=== PATIENT | male | born 1955 | race Caucasian/White ===

== ENCOUNTER 2021-08-17 10:25 | Emergency (ER) | payer OTHER, MEDICARE, SELFPAY ==
--- NOTE | 2021-08-17 10:30 | XR_ITS ---
WS: [id number] XR foot LT min 3V* [id number] REASON FOR EXAM: possible broken foot FINDINGS: No fracture identified. 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 Similar arthrop athic change in the MP joint and tarsal metatarsal joint of the toe. Joint spaces of the midfoot and hindfoot are intact and well preserved. XR/XR foot LT min 3V* [id number] IMPRESSION: No acute abnormality.
[2021-08-17 10:33] VITALS: PULSE 54; RESP 18; TEMP 36.8; O2SAT 99; BMI 24.5
--- NOTE | 2021-08-17 10:44 | ED_ITS ---
HPI - Extremity Problem General: Chief complaint: Extremity Injury, Lower Stated complaint: poss left broken foot Time Seen by Provider: 08/17/21 10:39 Source: patient Mode of arrival: other (With crutches) Limitations: no limitations History of Present Illness: 65-year-old male presents to the ER today for left foot pain that started yesterday. Patient reports this pain started after he was loading wood into his truck and stepped in a hole. Patient denies feeling a pop. He reports there has been swelling and tenderness since. Pain is worse with weightbearing and range of motion. Patient did take oxycodone he had at home and that did seem to help the pain some. Patient has been using crutches since he did this yesterday. Denies any prior injury to that foot. Review of Systems General: Reports: 10 or more systems reviewed and unremarkable except in HPI and below Musc: Reports: other (left foot pain) Physical Exam Const: COMMON NORMALS: no acute distress, average body habitus, patient oriented x3, no limitations and healthy appearing Resp: COMMON NORMALS: normal respiratory effort EFFORT & INSPECTION: Yes able to speak in complete sentences Cardio: COMMON NORMALS: regular rate and regular rhythm RATE: regular rate RHYTHM: regular rhythm Extremity: OTHER: pt has tenderness over the dorsal aspect of the foot at the proximal end of the 4th and 5th metatarsals. There is mild swelling noted, no erythema or warmth noted. Neuro: COMMON NORMALS: patient oriented x3 Psych: COMMON NORMALS: mental status grossly normal, Normal thought process present and cooperative THOUGHT PROCESS: Normal thought process present Skin: COMMON NORMALS: no rashes or lesions noted GENERAL SKIN EXAM: no rash es or lesions noted Course ED course: 65-year-old male presents to the ER today for left foot pain after injury yesterday. On exam there is mild swelling and tenderness noted. We will get x-ray of the left foot and treat pending results. Vital Signs: Vital signs: Vital Signs Temperature 98.2 F 08/17/21 10:33 Pulse Rate 54 L 08/17/21 10:33 Respiratory Rate 18 08/17/21 10:33 Pulse Oximetry 99 08/17/21 10:33 MDM - Extremity (Nontraumatic) Medical Decision Making 65-year-old male presents to the ER today for left foot pain after injuring it yesterday while loading wood into his truck. Patient has some swelling and tenderness noted in the dorsal aspect of the left foot. X-ray of the foot is negative in the ER today. Discussed findings with patient and recommended rest, ice, elevation. Take anti-inflammatory or Tylenol for pain. Use crutches for the next several days and progressed to weightbearing as tolerated. Follow-up with PCP in 10 to 14 days if no improvement. Patient was placed in Arie bandage in the ER. Return to the ER with any new or worsening symptoms. Patient verbalized understanding and is in agreement with the treatment plan. Lab Data Radiology Impressions Foot X-Ray 08/17/21 10:30 IMPRESSION: No acute abnormality. Critical Care Time Critical Care Time: Critical Care Time: No Discharge Plan Discharge Patient Disposition: Home Clinical Impression: Sprain of foot, left Qualifiers: Encounter type: initial encounter Qualified Code(s): S93.602A - Unspecified sprain of left foot, initial encounter Condition: Stable Discharge Orders: Discharge ED (Routine); Ordered 08/17/21 Ordered By: Joanna Smith Discharge Diet: Usual diet Discharge Activity: Increase activity as tolerated Patient Instructions: Opioid Safety Activity Restrictions/Additional Instructions: Take ibuprofen and Tylenol for pain. Elevate foot and apply ice to reduce swelling. Follow-up with PCP in 10 to 14 days if no improvement. Return to the ER with new or worsening symptoms. Coding Level of Care Code ED Food Service Employee for Yvrose Vora Exam Detailed
== END 2021-08-17 11:40 | disposition home or self-care (01) ==
PROVIDERS: Emergency Provider Physician Assistant
DX: S93.602A Unspecified sprain of left foot, initial encounter (principal); X50.1XXA Overexertion from prolonged static or awkward postures, initial encounter
CPT/HCPCS: 73630; 99282

== ENCOUNTER 2022-01-07 11:28 | Outpatient (CLI) | payer OTHER, SELFPAY ==
--- NOTE | 2022-01-07 11:56 | CT_ITS ---
WS: [id number] CT ABDOMEN AND PELVIS WITH CONTRAST HISTORY: CHRONIC UPPER ABDOMINAL PAIN TECHNIQUE: Imaging performed of the abdomen and pelvis with IV contrast. Single phase imaging of the abdomen. Coronal and sagittal reformats are submitted. All CT scans at [facility] use at [address] one of these dose optimization techniques: automated exposure control; mA and/or kV adjustment per patient size (includes targeted exams where dose is matched to clinical indication); or iterative re construction. IV CONTRAST: Omnipaque 350; 95 mL IV. Oral contrast: Yes. DLP: 1187.09 mGy.cm COMPARISON: 01/15/2018 Lower thorax: Lung bases are clear. Heart is normal size. Small hiatal hernia. Liver/biliary system: Mild hepatomegaly. Mild pneumobilia. Mild heterogeneity throughout the liver bu t no mass. Portal vein is patent. Gallbladder: Status post cholecystectomy. Pancreas: Status post Whipple procedure. Surgical clips are noted at the pancreatic head and neck jevon ction. The remaining pancreas is severely atrophied. Spleen: Normal size spleen. No mass or infarct. Adrenal glands: Normal. Right kidney: Normal size kidney. Nonobstructing calcification lower pole measures 5.2 mm. Cortical c yst lower pole 5.6 mm. Left kidney: Normal size kidney with no obstruction. Stable cortical cyst upper pole measures 8.7 mm. Aorta: Mild atherosclerosis with no aneurysm. Mesenteric arteries are well-opacified. Lymphadenopathy: None. Free fluid: None. GI tract: Diffuse moderate thickening of the stomach mucosa. In part this may be due to underdistenti on but the extent of the thickening is more prominent than on the prior examination. There is also co ntinued wall thickening and edema involving the proximal duodenum. This is also increased since 2018. The remaining small bowel is more normal caliber. There is extensive constipation and diffuse fecal retention. Normal appendix. Abdominal wall: Unremarkable abdominal wall. No hernia. Pelvis: No free fluid or adenopathy. Urinary bladder is negative. Very minimal heterogeneity within t he prostate gland. Prostate slightly encroaches into the base of the bladder. Bones: Unremarkable. CT/CT abdomen pelvis w con* [id number] IMPRESSION: 1. Status post Whipple procedure. Pancreatic findings are similar to the prior study from 2018. Stable pneumobilia. 2. Prior cholecystectomy. 3. There is diffuse wall thickening of the stomach and proximal small bowel. M ore than expected for underdistention. Suggest upper endoscopy for further eval uation. 4. Nonobstructing RIGHT renal calculi. 5. Normal appendix. 6. Diffuse moderate constipation. 7. No ascites or adenopathy.
[2022-01-07 13:43] LABS: Blood Urea Nitrogen 7 mg/dL (8-23); Glomerular Filtration Rate 84.4 mL/min (90-130)
[2022-01-07] MEDS: iohexol 350 mg/mL 100 mL Btl IV (13:54)
== END 2022-01-07 11:29 | disposition home or self-care (01) ==
PROVIDERS: Visit Provider Emergency Medicine Emergency Medical Services
DX: K44.9 Diaphragmatic hernia without obstruction or gangrene (principal); Z90.49 Acquired absence of other specified parts of digestive tract; N20.0 Calculus of kidney; K59.00 Constipation, unspecified
CPT/HCPCS: 74177; 82565; 84520

== ENCOUNTER 2022-02-02 15:04 | Emergency (ER) | payer OTHER, SELFPAY ==
[2022-02-02 15:29] VITALS: BP 120/67; PULSE 56; RESP 16; TEMP 36.7; O2SAT 97; BMI 25.7
--- NOTE | 2022-02-02 15:48 | ECG_ITS ---
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 Measurements Intervals [place] Rate: 49 P: 59 [place]: 180 QRS: -26 QRSD: 127 T: 29 QT: 455 QTc: 411 Interpretive Statements Sinus bradycardia ABNORMAL RHYTHM ECG No previous ECG available for comparison Electronically Signed On 02-02-2022 18:14:30 CDT by Rich Tubbs M.D. [id number]
[2022-02-02 16:00] VITALS: BP 133/78; PULSE 95; RESP 23; O2SAT 93
--- NOTE | 2022-02-02 16:13 | W.ED.ABDPA2 ---
HPI - Abdominal Pain General: Chief Complaint: Abdominal Pain Stated Complaint: Abd pains Time Seen by Provider: 02/02/22 15:45 Source: patient Mode of arrival: ambulatory History of Present Illness: 66-year-old male presents emergency room complaining of epigastric abdominal pain radiating across her right and left upper quadrants. He had similar pain in the past but has not been as intense as this. He has had quite a bit of diarrhea the last 24 hours no hematochezia melena hematemesis or coffee-ground emesis no black tarry stools no melena. No nausea or vomiting. No dysuria urgency or frequency. He has had some reflux today. He reports intermittent subjective fevers. No recent antibiotics. In 2012 patient had a perforated diverticuli they were doing a bowel resection and found a nodule in his pancreas that was thought to be precancerous as a result he had a modified Whipple procedure of some sort per his and his 's report. MD elicited complaint: abdominal pain Onset (ago): hour(s) Pain Consistency: constant Location: Epigastric Severity: moderate Quality: cramping Radiation: LUQ and RUQ Exacerbating factors: nothing Relieving factors: nothing Associated Symptoms: Reports change in bowel habits, change in stool character, chills, GI cramping, diarrhea, dyspepsia, fever(s), nausea and poor appetite; Denies anorexia, belching, bloating, coffee ground emesis, constipation, dysuria, excessive flatus, heartburn, hematochezia, hematuria, hematemesis, fecal incontinence, loose stools, melena, syncope and vomiting Review of Systems Const: Reports: fever(s), chills, fatigue and malaise ENMT: Denies: throat pain, ear or mastoid pain, nasal discharge or nasal congestion Card: Denies: chest pain, palpitations, irregular heart rhythm or syncope Resp: Denies: dyspnea, productive cough or non-productive cough GI: Reports: abdominal pain, nausea, diarrhea, GI cramping, change in bowel habits and change in stool character; Denies: vomiting, hematemesis, coffee ground emesis, heartburn, constipation, bloating, belching, excessive flatus, fecal incontinence, hematochezia or melena : Denies: flank pain, difficulty urinating, dysuria, urinary frequency or hematuria Musc: Denies: back pain Skin/Breast: Denies: rash or pruritus Physical Exam Const: GENERAL APPEARANCE: cooperative and comfortable ORIENTATION/CONSCIOUSNESS: Yes awake, Yes oriented to person, Yes oriented to place and Yes oriented to time HENMT: COMMON NORMALS: normocephalic, atraumatic and hearing grossly normal bilaterally HEAD & SCALP: normocephalic and atraumatic Resp: COMMON NORMALS: normal respiratory effort, No retractions, No use of accessory muscles and clear to auscultation bilaterally AUSCULTATION: clear to auscultation bilaterally Cardio: COMMON NORMALS: regular rate, regular rhythm and No murmurs present (Cardio) RATE: regular rate RHYTHM: regular rhythm GI: COMMON NORMALS: Soft to palpation and No hepatosplenomegaly present AUSCULTATION: Yes normoactive bowel sounds PALPATION: Yes Soft to palpation, No Tenderness to palpation present (GI), No Guarding due to palpation present (GI) and Yes No hepatosplenomegaly present Extremity: COMMON NORMALS: normal to inspection, capillary refill normal, no clubbing, cyanosis or edema, no calf tenderness and no pedal edema Neuro: SENSORIUM/ORIENTATION: Yes oriented to person, Yes oriented to place and Yes oriented to time Skin: COMMON NORMALS: no rashes or lesions noted GENERAL SKIN EXAM: no rashes or lesions noted Course Vital Signs: Vital signs: Vital Signs Temperature 98.1 F 02/02/22 15:29 Pulse Rate 56 L 02/02/22 15:29 Respiratory Rate 16 02/02/22 15:29 Blood Pressure 120/67 02/02/22 15:29 Pulse Oximetry 97 02/02/22 15:29 Oxygen Delivery Me thod 02/02/22 15:29 MDM - Abdominal Pain Medical Decision Making White count slightly elevated CT shows evidence of colitis. Started on Cipro and Flagyl clear liquid diet promethazine as needed follow-up with primary care if not improving. Medical Records I reviewed the patient's medical records. Lab Data I reviewed the patient's lab results. : 02/02/22 16:29 02/02/22 16:29 Labs/Radiology: Radiology Impressions Abdomen/Pelvis CT 02/02/22 16:16 IMPRESSION: 1. Prominent fluid throughout the small bowel and ascending colon with mucosal enhancement suggestive of an enterocolitis. 2. Diverticulosis without diverticulitis. 3. Small left inguinal hernia containing omentum without bowel. 4. Right kidney lower pole nonobstructing calyceal stone. 5. Bibasilar atelectasis. 6. Pneumobilia. 7. Hepatic steatosis. 8. Cholecystectomy and apparent post surgical Whipple changes. 9. Atrophy appearance of the pancreatic body and tail. 10. Bilateral renal cysts, negative for follow-up advised. Laboratory Results WBC 11.1 10^3/uL (4.0-10.0) H 02/02/22 16: RBC 4.51 10^6/uL (4.1-5.3) 02/02/22 16: Hgb 14.1 g/dL (11.7-16.6) 02/02/22 16: Hct 42.3 % (42.0-52.0) 02/02/22 16: MCV 93.8 fl (80-94) 02/02/22 16: MCH 31.3 pg (28.0-34.0) 02/02/22 16: MCHC 33.3 g/dL (30.0-36.0) 02/02/22 16: RDW 12.9 % (12.1-15.1) 02/02/22 16: Plt Count 222 10^3/cmm (130-400) 02/02/22 16: MPV 9.8 fL (7.4-10.4) 02/02/22 16: Neut % (Auto) 78.2 % 02/02/22 16: Lymph % (Auto) 11.9 % 02/02/22 16: [place] % (Auto) 6.2 % 02/02/22 16: Eos % (Auto) 2.8 % 02/02/22 16: Baso % (Auto) 0.5 % 02/02/22 16: Neut # (Auto) 8.64 10^3/uL (1.8-7.7) H 02/02/22 16: Lymph # (Auto) 1.3 10^3/uL (0.8-4.8) 02/02/22 16: [place] # (Auto) 0.7 10^3/uL (0.2-0.9) 02/02/22 16: Eos # (Auto) 0.3 10^3/uL (0.0-0.8) 02/02/22 16:29 Baso # (Auto) 0.1 10^3/uL (0.0-0.1) 02/02/22 16:29 Nucleated RBC % (auto) 0 % 02/02/22 16: Nucleated RBCs # 0.0 /100WBC 02/02/22 16:29 Sodium 136 mmol/L (136-145) 02/02/22 16:29 Potassium 4.1 mmol/L (3.5-5.1) 02/02/22 16: Chloride 100 mmol/L (98-107) 02/02/22 16: Carbon Dioxide 26 mmol/L (22-29) 02/02/22 16: Anion Gap 14.1 (5-19) 02/02/22 16:29 BUN 9 mg/dL (8-23) 02/02/22 16: Creatinine 0.7 mg/dL (0.7-1.2) 02/02/22 16:29 GFR Calculation 112.8 mL/min (90-130) 02/02/22 16:29 Glucose 103 mg/dL (65-115) 02/02/22 16:29 Calculated Osmolality 281 mOsm/kg (285-295) L 02/02/22 16:29 Calcium 9.1 mg/dL (8.5-10.5) 02/02/22 16:29 Total Bilirubin 0.8 mg/dL (0.15-1.2) 02/02/22 16:29 AST 49 U/L (0-40) H 02/02/22 16:29 ALT 55 U/L (0-41) H 02/02/22 16:29 Alkaline Phosphatase 125 U/L (40-130) 02/02/22 16:29 Total Protein 6.6 g/dL (6.6-8.7) 02/02/22 16:29 Albumin 3.8 g/dL (3.5-5.2) 02/02/22 16: Globulin 2.8 g/dL (1.3-4.6) 02/02/22 16:29 Lipase 5 U/L (13-60) L 02/02/22 16:29 Urine Color Yellow (Yellow) 02/02/22 16:07 Urine Appearance Clear (CLEAR) 02/02/22 16:07 Urine pH 5 (5-7) 02/02/22 16:07 Ur Specific [place] 1.020 (1.005-1.030) 02/02/22 16:07 Urine Protein Neg (Negative) 02/02/22 16:07 Urine Glucose (UA) Norm (Normal) 02/02/22 16:07 Urine Ketones 1+ (Negative) H 02/02/22 16:07 Urine Blood Neg (Negative) 02/02/22 16:07 Urine Nitrate Negative (Negative) 02/02/22 16:07 Urine Bilirubin Neg (Negative) 02/02/22 16:07 Urine Urobilinogen Neg mg/dL (Negative) 02/02/22 16:07 Ur Leukocyte Esterase Negative (Negative) 02/02/22 16:07 Discharge Plan Discharge Patient Disposition: Home Clinical Impression: Colitis Condition: Stable Prescriptions: New Cipro 500 mg tablet 500 mg PO BID Qty: 20 0RF metronidazole 500 mg tablet 500 mg PO BID 10 Days Qty: 20 0RF promethazine 25 mg tablet 25 mg PO Q6H PRN (Reason: nausea and vomiting) Qty: 20 0RF Discharge Orders: Discharge ED (Routine); Ordered 02/02/22 Ordered By: Christian Singleton Discharge Diet: Full LIquid Patient Instructions: Opioid Safety, Pain Management Activity Restrictions/Additional Instructions: CT showed inflammation of your colon we will start you on antibiotics. We will could have 24 to 48 hours and advance as tolerated. If symptoms worsen or change recheck with your primary care doctor return to the emergency room. Coding Level of Care Code ED Solar Sales Ambassador for Yvrose Fwcortney Exam Detailed
--- NOTE | 2022-02-02 16:16 | CTR_ITS ---
PROCEDURE INFORMATION: Exam: CT Abdomen And Pelvis With Contrast Exam date and time: 02/02/2022 5:06 PM Age: 66 years old Clinical indication: Abdominal pain; Prior surgery; Surgery type: Hernia, whipple procedure; Additional info: Abd pain TECHNIQUE: Imaging protocol: Computed tomography of the abdomen and pelvis with contrast. Radiation optimization: All CT scans at this facility use at least one of these dose optimization techniques: automated exposure control; mA and/or kV adjustment per patient size (includes targeted exams where dose is matched to clinical indication); or iterative reconstruction. Contrast material: OMNI 350; Contrast volume: 95 ml; Contrast route: INTRAVENOUS (IV); COMPARISON: CT abdomen pelvis w con* [id number] 01/07/2022 1:47 PM RADIATION DOSE METRICS: Total DLP (mGy-cm): 677.98 FINDINGS: Lungs: Bibasilar atelectasis. Liver: Hepatic steatosis. Gallbladder and bile ducts: Pneumobilia. Cholecystectomy and apparent post surgical Whipple changes. Pancreas: Atrophy appearance of the pancreatic body and tail. Spleen: Normal. No splenomegaly. Adrenal glands: Normal. No mass. Kidneys and ureters: Right kidney lower pole nonobstructing calyceal stone. Bilateral renal cysts, negative for follow-up advised. Stomach and bowel: Prominent fluid throughout the small bowel and ascending colon with mucosal enhancement suggestive of an enterocolitis. Diverticulosis without diverticulitis. Appendix: No evidence of appendicitis. Intraperitoneal space: Unremarkable. No free air. No significant fluid collection. Vasculature: Unremarkable. No abdominal aortic aneurysm. Lymph nodes: Unremarkable. No enlarged lymph nodes. Urinary bladder: Unremarkable as visualized. Reproductive: Unremarkable as visualized. Bones/joints: Unremarkable. No acute fracture. Soft tissues: Small left inguinal hernia containing omentum without bowel. CT/CT abdomen pelvis w con* [id number] IMPRESSION: 1. Prominent fluid throughout the small bowel and ascending colon with mucosal enhancement suggestive of an enterocolitis. 2. Diverticulosis without diverticulitis. 3. Small left inguinal hernia containing omentum without bowel. 4. Right kidney lower pole nonobstructing calyceal stone. 5. Bibasilar atelectasis. 6. Pneumobilia. 7. Hepatic steatosis. 8. Cholecystectomy and apparent post surgical Whipple changes. 9. Atrophy appearance of the pancreatic body and tail. 10. Bilateral renal cysts, negative for follow-up advised.
[2022-02-02] MEDS: ondansetron 2 mg/ML SDV 2 mL 4 MG IVP (16:28)
[2022-02-02 16:30] LABS: Add Urine Microscopic? NO; Charge for UA Resulting for Rev
--- NOTE | 2022-02-02 16:35 | PC.NURSE ---
PT PLACED ON CONTINUOUS SPO2,NIBP, AND CM.
[2022-02-02 16:40] LABS: Bilirubin Urine Neg (Negative); Blood Urine Neg (Negative); Glucose Urine UA Norm (Normal); Ketones Urine 1+ (Negative); Nitrate Urine Negative (Negative); Protein Urine Neg (Negative); Urine Appearance Clear (CLEAR); Urine Color Yellow (Yellow); pH Urine 5 (5-7)
[2022-02-02 16:41] LABS: Leukocyte Esterase Urine Negative (Negative); Urobilinogen Urine Neg (Negative)
[2022-02-02 16:43] LABS: Basophils # 0.1 10^3/uL (0.0-0.1); Basophils % 0.5 %; Eosinophils # 0.3 10^3/uL (0.0-0.8); Eosinophils % 2.8 %; Hematocrit 42.3 % (42.0-52.0); Hemoglobin 14.1 g/dL (11.7-16.6); Lymphocytes # 1.3 10^3/uL (0.8-4.8); Lymphocytes % 11.9 %; Mean Corpuscular HGB Conc 33.3 g/dL (30.0-36.0); Mean Corpuscular Hemoglobin 31.3 pg (28.0-34.0); Mean Corpuscular Volume 93.8 fl (80-94); Mean Platelet Volume 9.8 fL (7.4-10.4); Monocytes # 0.7 10^3/uL (0.2-0.9); Monocytes % 6.2 %; Neutrophils # 8.64 10^3/uL (1.8-7.7); Neutrophils % 78.2 %; Nucleated Red Blood Cells % 0 %; Platelet Count 222 10^3/cmm (130-400); Red Blood Count 4.51 10^6/uL (4.1-5.3); Red Cell Distribution Width 12.9 % (12.1-15.1); White Blood Count 11.1 10^3/uL (4.0-10.0)
[2022-02-02] MEDS: lactated ringers 1,000 ML 999 ML IV ×2 (16:49→17:46)
[2022-02-02 17:00] VITALS: BP 142/80; PULSE 41; RESP 19; O2SAT 96
[2022-02-02 17:03] LABS: Alanine Aminotransferase 55 U/L (0-41); Albumin Level 3.8 g/dL (3.5-5.2); Alkaline Phosphatase 125 U/L (40-130); Anion Gap 14.1 (5-19); Aspartate Amino Transferase 49 U/L (0-40); Blood Urea Nitrogen 9 mg/dL (8-23); Calcium 9.1 mg/dL (8.5-10.5); Carbon Dioxide 26 mmol/L (22-29); Chloride 100 mmol/L (98-107); Globulin 2.8 g/dL (1.3-4.6); Glomerular Filtration Rate 112.8 mL/min (90-130); Glucose 103 mg/dL (65-115); Lipase 5 U/L (13-60); Osmolality Calculated 281 mOsm/kg (285-295); Potassium 4.1 mmol/L (3.5-5.1); Sodium 136 mmol/L (136-145); Total Bilirubin 0.8 mg/dL (0.15-1.2); Total Protein 6.6 g/dL (6.6-8.7)
[2022-02-02] MEDS: iohexol 350 mg/mL 100 mL Btl IV (17:12)
[2022-02-02 18:00] VITALS: BP 149/79; PULSE 41; RESP 20; O2SAT 98
== END 2022-02-02 18:27 | disposition home or self-care (01) ==
PROVIDERS: Emergency Provider Family Medicine
DX: K52.9 Noninfective gastroenteritis and colitis, unspecified (principal)
CPT/HCPCS: 74177; 80053; 81003; 83690; 85025; 93005; 96361; 96374; 99285; J2405; Q9967

== ENCOUNTER → 2022-11-29 11:37 | Outpatient (BNVA) | payer MEDICARE, SELFPAY | PROVIDERS: Visit Provider Emergency Medicine | DX: J02.9 Acute pharyngitis, unspecified (principal) | CPT/HCPCS: 87880 ==

== ENCOUNTER → 2023-09-11 11:30 | Outpatient (BNVA) | payer MEDICARE, SELFPAY | PROVIDERS: Visit Provider Emergency Medicine | DX: M10.9 Gout, unspecified (principal) | CPT/HCPCS: 80048; 84550; 85025 ==

== ENCOUNTER → 2023-11-07 11:33 | Outpatient (BNVA) | payer MEDICARE, SELFPAY | PROVIDERS: PCP Family Medicine; Visit Provider Emergency Medicine | DX: N39.0 Urinary tract infection, site not specified (principal); R30.0 Dysuria; R31.9 Hematuria, unspecified; N30.01 Acute cystitis with hematuria | CPT/HCPCS: 81000; 87077; 87086; 87184 ==